=== PATIENT | female | born 1995 | race Two or more races ===

== ENCOUNTER 2020-07-01 22:37 | Emergency (ER) | payer BC ==
[~2020-07-01] VITALS: Ht 170.2 cm; Wt 97.5 kg
--- NOTE | 2020-07-01 22:56 | NUR ---
PATIENT CAME TO THE ER BED 10 BIBRA FROM HOME C/O NAUSEA AND VOMITING SINCE 1699 OF TODAY. PATIENT STATES THAT SHE THINKS IT MAY COME FROM THE 2ND COVID VACCINE THAT SHE HAD ON SATURDAY. PATIENT DENIES INGESTING ANY FOOD OUT OF THE ORDINARY. PATIENT IS AAOX4. NO SOB. BREATHING EVENLY AND UNLABORED ON ROOM AIR AT 100%. PATIENT IS CONNECTED TO THE MONITOR.
[2020-07-01] MEDS ORDERED: ONDANSETRON HCL/PF 4 MG/2 ML VIAL ONE (23:04)
[2020-07-01] MEDS: IV LR 1000 ML 1,000 ML IV ONE (23:07)
[2020-07-01] MEDS: ONDANSETRON HCL/PF 4 MG/2 ML VIAL IVP ONE (23:07)
[2020-07-01 23:10] LABS: BASOPHILS # (AUTO) 0.1 /CMM (0.0-0.2); BASOPHILS % (AUTO) 0.4 % (0.0-2.0); EOSINOPHILS % (AUTO) 0.3 % (0.0-6.0); HEMATOCRIT 42 % (33-45); LYMPHOCYTES # (AUTO) 1.4 /CMM (0.8-4.8); LYMPHOCYTES % (AUTO) 8.3 % (20.0-44.0); MEAN CORPUSCULAR HGB CONC 34 g/dl (31.0-36.0); MEAN CORPUSCULAR VOLUME 84 fL (82-100); MONOCYTES # (AUTO) 0.9 /CMM (0.1-1.30); MONOCYTES % (AUTO) 5.5 % (2.0-12.0); NEUTROPHILS # (AUTO) 14.7 /CMM (1.8-8.9); NEUTROPHILS % (AUTO) 85.5 % (43.0-81.0); PLATELET COUNT (AUTO) 358 /CMM (150-450); RED BLOOD CELL COUNT(AUTO) 4.98 MIL/uL (4.0-5.2); WHITE BLOOD COUNT (AUTO) 17.1 K/uL (4.3-11.0)
--- NOTE | 2020-07-01 23:30 | NUR ---
US TECH AT BEDSIDE FOR ULTRASOUND PROCEDURE
[2020-07-01 23:44] LABS: CALCIUM, SERUM 9.5 mg/dL (8.5-10.1); CREATININE 0.9 mg/dL (0.6-1.3); POTASSIUM 3.1 mmol/L (3.5-5.1)
[2020-07-01 23:50] LABS: ALBUMIN 4.5 g/dL (3.4-5.0); BILIRUBIN,DIRECT 0.1 mg/dL (0.0-0.2); BILIRUBIN,TOTAL 0.3 mg/dL (0.2-1.0); TOTAL PROTEIN, SERUM 8.7 g/dL (6.4-8.2)
[2020-07-02] MEDS: IV LR 1000 ML 1,000 ML IV ONE (00:24)
[2020-07-02] MEDS ORDERED: diphenhydrAMINE HCL 50 MG/ML VIAL ONE (00:29)
[2020-07-02] MEDS ORDERED: METOCLOPRAMIDE HCL 10 MG/2 ML VIAL ONE (00:29)
[2020-07-02] MEDS ORDERED: HYDROMORPHONE 1 MG/1 ML DISP.SYRIN ONE (00:30)
[2020-07-02] MEDS: diphenhydrAMINE HCL 50 MG/ML VIAL IV ONE (00:44)
[2020-07-02] MEDS: METOCLOPRAMIDE HCL 10 MG/2 ML VIAL IV ONE (00:44)
[2020-07-02] MEDS: HYDROMORPHONE 1 MG/1 ML DISP.SYRIN IV ONE (00:44)
[2020-07-02] MEDS ORDERED: IOHEXOL-300 100 ML VIAL IV ONE (00:47)
[2020-07-02] MEDS ORDERED: IV NS 0.9% 250 ML IV ONE (00:48)
[2020-07-02 01:38] LABS: BILIRUBIN,URINE Negative (NEGATIVE); COLOR,URINE YELLOW (YELLOW); LEUKOCYTE ESTERASE ,URINE Negative (NEGATIVE); NITRITE, URINE Negative (NEGATIVE); PROTEIN,URINE Trace mg/dl (NEGATIVE); UGLUCOSE Negative (NEGATIVE); UROBILINOGEN,URINE 0.2 EU/dL (0.2)
--- NOTE | 2020-07-02 02:06 | NUR ---
LACTIC ACID 4.1
[2020-07-02 02:47] LABS: CALCIUM, SERUM 8.2 mg/dL (8.5-10.1); CREATININE 0.7 mg/dL (0.6-1.3); POTASSIUM 4.5 mmol/L (3.5-5.1)
[2020-07-02] MEDS ORDERED: ONDA4TAB5 PO (03:06)
[2020-07-02] MEDS ORDERED: DICY20TA11 PO (03:06)
[2020-07-02 03:13] LABS: BACTERIA,URINE Many /HPF (None Seen); MUCUS,URINE Moderate /LPF (None Seen); RBC,URINE 0-2 /HPF (0-2); SQUAMOUS EPITHELIAL CELL,UR Many /HPF (None Seen)
--- NOTE | 2020-07-02 03:27 | NUR ---
Patient discharged to home in stable condition. Written and verbal after care instructions given. Patient verbalizes understanding of instruction.
--- NOTE | 2020-07-02 03:27 | NUR ---
IV removed. Catheter intact and site benign. Pressure and 4x4 applied to site. No bleeding noted.
[2020-07-02 03:28] VITALS: BP 102/62
== END 2020-07-02 04:22 | disposition home or self-care (01) ==
LOC: ER 22:40
DX: R10.12 Left upper quadrant pain (principal); R10.11 Right upper quadrant pain; R11.10 Vomiting, unspecified; R19.7 Diarrhea, unspecified; E86.0 Dehydration; F32.9 Major depressive disorder, single episode, unspecified; Z79.899 Other long term (current) drug therapy
CPT/HCPCS: 36415 ×2; 74177; 76705; 80048 ×2; 80076; 81001; 82010; 83605; 83690; 84702; 85025; 85730; 96361 ×2; 96374; 96375; 99285; J1170; J1200; J2405; J2765; J7050; J7120 ×3; Q9967; 87086-TC